=== PATIENT | male | born 1985 | race Caucasian/White ===

== ENCOUNTER 2022-11-20 14:22 | Outpatient (CLI) | payer OTHER, SELFPAY ==
--- NOTE | ~2022-11-20 | US_ITS ---
EXAMINATION: US venous doppler [facility] DATE: 11/20/2022 15:16 INDICATION: Shortness of breath. Elevated d-dimer. TECHNIQUE: Grayscale ultrasound images without and with compression and Doppler ultrasound images of the bilateral lower extremity veins were obtained. COMPARISON: None. FINDINGS: The visualized portions of right common femoral vein, profunda (deep) femoral vein, femoral vein, pop liteal vein, posterior tibial veins, peroneal veins, gastrocnemius vein and greater saphenous vein ou tflow are patent. The visualized portions of left common femoral vein, profunda femoral vein, femoral vein, popliteal v ein, posterior tibial veins, peroneal veins, gastrocnemius vein and greater saphenous vein outflow ar e patent. IMPRESSION: 1. No deep venous thrombosis in either lower limb. Reviewed, dictated and finalized at location A.
--- NOTE | ~2022-11-20 | US_ITS ---
EXAMINATION: US venous doppler [facility] DATE: 11/20/2022 15:16 INDICATION: Shortness of breath. Other specified abnormal findings of blood chemistry. Elevated d-dim er. TECHNIQUE: Grayscale images without and with compression and Doppler images of the bilateral upper ex tremity veins were obtained. COMPARISON: None. FINDINGS: The right internal jugular vein, subclavian vein, axillary vein, brachial vein, basilic vein, cephali c vein, radial vein, and ulnar vein are patent. The left internal jugular vein, subclavian vein, axillary vein, brachial vein, basilic vein, cephalic vein, radial vein, and ulnar vein are patent. IMPRESSION: 1. Patent bilateral upper extremity veins. No evidence of venous thrombosis. Reviewed, dictated and finalized at location A.
== END 2022-11-20 14:23 ==
LOC: GOSHIMG 14:23
PROVIDERS: PCP Clinical Nurse Specialist; Visit Provider Clinical Nurse Specialist
DX: R79.89 Other specified abnormal findings of blood chemistry (principal)
CPT/HCPCS: 93970

== ENCOUNTER 2022-11-24 15:52 | Outpatient (CLI) | payer OTHER, SELFPAY ==
[2022-11-27 03:39] LABS: Thyroid Peroxidase Antibodies <1 IU/mL (<9)
== END 2022-11-24 15:53 | disposition home or self-care (01) ==
LOC: ANHGOSHLAB 15:54
PROVIDERS: PCP Clinical Nurse Specialist; Visit Provider Clinical Nurse Specialist
DX: R94.6 Abnormal results of thyroid function studies (principal)
CPT/HCPCS: 36415; 84439; 84443; 86376

== ENCOUNTER 2022-11-27 15:06 | Outpatient (CLI) | payer OTHER, SELFPAY ==
--- NOTE | ~2022-11-27 | US_ITS ---
EXAMINATION: US thyroid DATE: 11/27/2022 15:17 INDICATION: Abnormal thyroid function studies TECHNIQUE: Multiple ultrasound images of the thyroid were obtained. COMPARISON: None. FINDINGS: The right thyroid lobe measures 5.1 x 1.6 x 2.2 cm. The left thyroid lobe measures 4.6 x 1.3 x 2.0 c m. The thyroid isthmus measures 6 mm in maximal thickness. No discrete nodules identified. There is h eterogeneous echogenicity with coarsened echotexture throughout the thyroid with diffuse increased va scular flow on color Doppler which can be seen with thyroiditis. IMPRESSION: 1. Diffuse mild enlargement of the thyroid with heterogeneous echogenicity and increased vascular minerva w without discrete nodules which could be seen with thyroiditis. Reviewed, dictated and finalized at location A. IMPRESSION: 1. Diffuse mild enlargement of the thyroid with heterogeneous echogenicity and increased vascular flow without discrete nodules which could be seen with thyro iditis.
== END 2022-11-27 15:07 ==
LOC: GOSHIMG 15:07
PROVIDERS: PCP Clinical Nurse Specialist; Visit Provider Clinical Nurse Specialist
DX: E04.9 Nontoxic goiter, unspecified (principal); R94.6 Abnormal results of thyroid function studies
CPT/HCPCS: 76536

== ENCOUNTER 2022-12-22 08:15 | Outpatient (CLI) | payer OTHER, SELFPAY ==
--- NOTE | 2022-12-22 08:49 | EST_ITS ---
Patient Info Name: Jose Martin Geiger Age: 37 years : 1985 Gender: Male Ht: 72 in Wt: 255 lbs BSA: 2.46 m2 HR: 72 bpm Exam Date: 12/22/2022 9:40 AM Exam Location: [facility] Pulmonary Patient Status: Outpatient Admit Date: 12/22/2022 Staff Ordering Physician: Celia Pinto Sausage Canner: Lynne Delarosa RDCS Attending Provider: STEFAN RICARDO DO Referring Physician: Millie SPARKS; Exercise Technologist: Georgie Short RDCS Exercise Physician: Stefan Ricardo DO Exam Type: CA stress echo Study Info Treadmill exercise stress echocardiogram is performed. Summary 1. 1. Negative August exercise stress test for ischemic ST changes by ECG criteria. 2. 2. Reduced functional capacity, achieving 10 METs of workload. 3. 3. Appropriate HR response to exercise. 4. 4. Appropriate HR recovery at 1 minute post exercise. 5. 5. Negative stress echocardiogram for ischemia by wall motion analysis. 6. 6. Patient informed of the above results. Stress Echo Findings Left Ventricle Appropriate increase in LV endocardial thickening with systole. Appropriate augmentation of contractility with systole. No wall motion abnormality. Left Ventricle Normal LV systolic function, no wall motion abnormality. Protocol: August Stress ECG Details Stage: REST Duration (min): 0 min : 54 sec Speed (mph): 0.0 Grade (%): 0 HR (bpm): 63 SBP (mmHg): 133 DBP (mmHg): 75 METS: --- Stage: REST Duration (min): 22 min : 0 sec Speed (mph): 0.0 Grade (%): 0 HR (bpm): 90 SBP (mmHg): 133 DBP (mmHg): 75 METS: --- Stage: STAGE 1 Duration (min): 1 min : 0 sec Speed (mph): 1.7 Grade (%): 10 HR (bpm): 111 SBP (mmHg): 133 DBP (mmHg): 75 METS: --- Stage: STAGE 1 Duration (min): 2 min : 0 sec Speed (mph): 1.7 Grade (%): 10 HR (bpm): 115 SBP (mmHg): 133 DBP (mmHg): 75 METS: --- Stage: STAGE 1 Duration (min): 3 min : 0 sec Speed (mph): 1.7 Grade (%): 10 HR (bpm): 118 SBP (mmHg): 139 DBP (mmHg): 66 METS: --- Stage: STAGE 2 Duration (min): 1 min : 0 sec Speed (mph): 2.5 Grade (%): 12 HR (bpm): 132 SBP (mmHg): 139 DBP (mmHg): 66 METS: --- Stage: STAGE 2 Duration (min): 2 min : 0 sec Speed (mph): 2.5 Grade (%): 12 HR (bpm): 137 SBP (mmHg): 128 DBP (mmHg): 71 METS: --- Stage: STAGE 2 Duration (min): 3 min : 0 sec Speed (mph): 2.5 Grade (%): 12 HR (bpm): 141 SBP (mmHg): 128 DBP (mmHg): 71 METS: --- Stage: STAGE 3 Duration (min): 1 min : 0 sec Speed (mph): 3.4 Grade (%): 14 HR (bpm): 160 SBP (mmHg): 137 DBP (mmHg): 95 METS: --- Stage: STAGE 3 Duration (min): 2 min : 0 sec Speed (mph): 3.4 Grade (%): 14 HR (bpm): 168 SBP (mmHg): 137 DBP (mmHg): 95 METS: --- Stage: STAGE 3 Duration (min): 2 min : 1 sec Speed (mph): 0.0 Grade (%): 0 HR (bpm): 168 SBP (mmHg): 137 DBP (mmHg): 95 METS: --- Stage: RECOVERY Duration (min): 0 min : 58 sec Speed (mph): 0.0
--- NOTE | 2022-12-24 09:18 | WPDPFTINT ---
PFT Procedure Performed PFT Procedure Performed Spirometry with Pre/Post Bronchodilator Plethysmography (Lung Vol) Diffusing Cap (DLCO) Flow Vol Loop PFT Interpretation This is a pulmonary function test with pre and post-bronchodilator spirometry, plethysmography and diffusing capacity. The test was performed and results interpreted in accordance with the 2019 and 2005 ATS/ERS Task Force guidelines respectively using the Global Lung Function Initiative-2012 reference equations. Patient demonstrated good effort and cooperation. Reproducibility criteria were met. The quality of the pre bronchodilator spirometry maneuver was Grade A and post bronchodilator spirometry maneuver was Grade A. Findings: Spirometry: The contour the inspiratory and expiratory flow tracing are normal. The pre bronchodilator FVC is 4.73 L, 83% predicted. The pre bronchodilator FEV1 is 3.61 L, 79% predicted. The pre bronchodilator FEV1: FVC ratio is 76%. The post bronchodilator FVC is 4.72 L, representing no change. The post bronchodilator FEV1 is 3.71 L, representing a 3% increase. The post bronchodilator FEV1: FVC ratio 79%. Plethysmography: The total lung capacity is 5.81 L, 79% predicted. The functional residual capacity is 2.56 L, 69% predicted. The residual volume is 1.07 L, 57% predicted. Diffusing capacity: The diffusing capacity unadjusted for hemoglobin and carboxyhemoglobin is 28.7, 84% predicted. The diffusing capacity adjusted for alveolar volume is 5.04, 105% predicted. Impression: The spirometry is normal without evidence of an obstructive abnormality. There is no significant improvement after inhaling a single dose of albuterol. The total lung capacity and functional residual capacity are normal with a decreased residual volume. This is an abnormal but nonspecific lung volume pattern. The diffusing capacity is normal. There are no prior studies for comparison
== END 2022-12-22 08:16 | disposition home or self-care (01) ==
PROVIDERS: PCP Clinical Nurse Specialist; Visit Provider Clinical Nurse Specialist
DX: R06.02 Shortness of breath (principal)
CPT/HCPCS: 93351; 94060; 94726; 94729

== ENCOUNTER 2022-12-29 01:53 | Day surgery (SDC) | payer OTHER, SELFPAY ==
[2022-12-17 14:41] VITALS: BMI 32.5
[2022-12-29 06:42] VITALS: BP 144/82; PULSE 62; RESP 16; TEMP 35.9; O2SAT 99; BMI 34.5
[2022-12-29] MEDS: LACTATED RINGERS 1,000 ML 150 ML IV CONT (06:51)
--- NOTE | 2022-12-29 07:50 | P.PNAN_ITS ---
Anes - Initial Pre Proc Eval Procedure: Operation Date: 12/29/22 08:00 Proposed Procedures p Esophagogastroduodenoscopy - Jerzy Fields MD Date/Time: 12/29/22 07:50 Surgeon: Jerzy Fields MD Pre Op Diagnosis: GERD, Epigastric pain Patient Data Age: 37 Gender: M Height: 1.83 m Weight: 115.6 kg Last Vital Signs Temp 96.7 F L 12/29/22 06:42 Pulse 62 12/29/22 06:42 Resp 16 12/29/22 06:42 BP 144/82 H 12/29/22 06:42 Pulse Ox 99 12/29/22 06:42 O2 Del Method Room Air 12/29/22 06:42 Allergies Allergy/AdvReac Type Severity Reaction Status Date / Time No Known Allergies Allergy Mild Verified 12/29/22 06:41 Home Medications Medication Instructions Recorded Confirmed Type esomeprazole magnesium 20 mg 20 mg PO DAILY 11/17/22 12/29/22 History capsule,delayed release Patient hx anesthesia problems: none Family hx anesthesia problems: none Results Review: All pre-operative results and documents have been reviewed as part of the pre- operative evaluation. [facility] Past Medical History Medical History (Updated 12/03/22 @ 14:52 by Manju Ku APRN) Epigastric pressure GERD (gastroesophageal reflux disease) Globus sensation Obesity Family History Family History Sibling Alcohol abuse Father Cancer Hypertension Diabetes mellitus Heart problem Social History Social History Smoking status: Never smoker Alcohol intake: never Substance use: never Living arrangements: with family Spiritual care concerns: No Anes - Eval Final PreProcedure Day of Procedure 12/29/22 07:50 Patient weight: obese Heart: regular rate and rhythm Lungs: clear to auscultation Airway: Mallampati scale class II Neurological: alert and oriented Last oral intake: >/= 8 hours ASA classification: II Emergent: no Anesthetic plan: proceed Anesthesia type and monitoring: general GIVS and standard monitoring Results Review: All pre-operative results and documents have been reviewed as part of the pre- operative evaluation. Informed Consent: The patient's anesthetic plan and its attendant risks and benefits were discussed with the patient/family/POA. Questions were solicited and answers provided to the satisfaction of the patient/family/POA.
--- NOTE | 2022-12-29 07:51 | WPDHPUPDATE1 ---
History and Physical Update Update Date/Time: 12/29/22 07:51 History and Physical has been reviewed, including an updated exam of the patient. There are NO changes in the patient's condition. Risks, benefits, and alternatives have been discussed and questions answered. Patient agrees to proceed with procedure.
[2022-12-29 08:06] VITALS: BP 92/49; PULSE 68; RESP 18; O2SAT 100
[2022-12-29 08:16] VITALS: BP 103/60; PULSE 61; RESP 20; O2SAT 96
[2022-12-29 08:26] VITALS: BP 108/55; PULSE 62; RESP 18; O2SAT 100
== END 2022-12-29 08:33 | disposition home or self-care (01) ==
PROVIDERS: PCP Internal Medicine; Visit Provider Internal Medicine Gastroenterology
PROC: 0DJ08ZZ Inspection of Upper Intestinal Tract, Via Natural or Artificial Opening Endoscopic (ICD-10-PCS; CPT 43235; principal; 2022-12-29 08:00)
DX: K21.00 Gastro-esophageal reflux disease with esophagitis, without bleeding (principal); K31.A29 Gastric intestinal metaplasia with dysplasia, unspecified; K22.70 Barrett's esophagus without dysplasia; K44.9 Diaphragmatic hernia without obstruction or gangrene; E66.9 Obesity, unspecified; Z68.34 Body mass index [BMI] 34.0-34.9, adult
CPT/HCPCS: 43239; 88305; J2704; J7120

== ENCOUNTER 2024-06-03 23:18 | Emergency (ER) | payer OTHER, SELFPAY ==
--- NOTE | ~2024-06-03 | XR_ITS ---
CHEST RADIOGRAPH, PA AND LATERAL CLINICAL HISTORY: CHEST PAIN . COMPARISON: None available TECHNIQUE: PA and lateral views of the chest. FINDINGS The cardiomediastinal silhouette is unremarkable. The lungs are clear. Visualized osseous structures and soft tissues are unremarkable. IMPRESSION: No focal infiltrate or effusion. Reviewed, dictated and finalized at location A.
[2024-06-03 23:19] VITALS: BP 139/69; PULSE 64; RESP 16; TEMP 36.1; O2SAT 99
--- NOTE | 2024-06-03 23:19 | ECG_ITS ---
Test Date: 2024-06-03 23:28:15 Measurements Intervals [place] Rate: 58 P: 7 CA: 136 QRS: 62 QRSD: 105 T: 53 QT: 392 QTc: 387 Interpretive Statements SINUS BRADYCARDIA No previous ECG available for comparison Electronically Signed On 06-04-2024 13:29:58 CDT by Shilpi Cm M.D.
--- OUTSIDE RECORDS SUMMARY | 2024-06-03 23:20 | XMS_ITS | Clinical Summary ---
Author Organization [facility] Address [address] [place] [address] Care Team Providers Care Yeast Stacker Name Role Phone Unavailable Primary Care Provider Unavailabl e Source Comments [facility],non-owned Affiliates and Associated Physician Practices is amultiple site organization consisting of ambulatory clinics and hospital sitesin [place], [place], [place] and [place]. This disclosure is being madepursuant to the Care Everywhere program and may not contain all information available regarding this patient. Last updated 17.[facility] [employer] Allergies No known active allergies Social History Tobacco Use Types Packs/Day Years Used Date Smoking Tobacco: Never Smokeless Tobacco: Never Tobacco Cessation:Counseling Given: Not Answered Alcohol Use Standard Drinks/Week Comments Not Currently 0 (1 standard drink = 0.6 oz pur e alcohol) Sex and Gender Information Value Date Recorded Sex Assigned at Not on file Gender Identity Not on file Sexual Orientation Not on file Last Filed Vital Signs Vital Sign Reading Time Taken Comments Blood Pressure 120/79 11/19/2022 2:33 AM CDT Pulse 69 11/19/2022 2:33 AM CDT Temperature 36.3 C (97.3 F) 11/18/2022 8:10 PM CDT Respiratory Rate 20 11/19/2022 2:33 AM CDT Oxygen Saturation 100% 11/19/2022 2:33 AM CDT Inhaled Oxygen Concentration - - Weight 115.7 kg (255 lb) 11/18/2022 8:10 PM CDT Height 182.9 cm (6') 11/18/2022 8:10 PM CDT Body Mass Index 34.58 11/18/2022 8:10 PM CDT Plan of Treatment Health Maintenance Due Date Last Done Comments HIV SCREENING 11/21/1999 HEPATITIS C SCREENING 11/16/2002 DTAP/TDAP/TD VACCINES (1 - Tdap) 11/21/2003 HEPATITIS B VACCINE (1 of 3 - 19+ 3-dose series) 11/21/2003 COVID-19 VACCINE (2 - 2023-2 5 season) 2023 11/14/2020 INFLUENZA VACCINE (#1) 2023 DEPRESSION SCREENING 03/15/2024 ZOSTER VACCINE (1 of 2) 2034 HIB VACCINE Aged Out No longer eligi ble based on patient's age to complete this topic HPV VACCINE Aged Out No longer eligi ble based on patient's age to complete this topic MENINGOCOCCAL (Group B) VACC INE SHARED DECISION-MAKING Aged Out No longer eligibl e based on patient's age to complete this topic MENINGOCOCCAL GROUPS A/C/Y/W VACCINE Aged Out No longer eligible b ased on patient's age to complete this topic PNEUMOCOCCAL VACCINE Aged Out No long er eligible based on patient's age to complete this topic
--- OUTSIDE RECORDS SUMMARY | 2024-06-03 23:20 | XMS_ITS | Clinical Summary ---
Author Organization [facility] al Address [address] [place] [address] Care Team Providers Care Product Management Analyst Name Role Phone Unknown, Notinfile Primary Care Provider Unavail able Allergies No known active allergies Medications albuterol HFA (PROVENTIL HFA,VENTOLIN HFA,PROAIR HFA) 90 mcg/actuation inhaler Inhale 2 puffs every 4 (four) hours as needed for wheezing 1 each 11/15/2022 Active Social History Tobacco Use Types Packs/Day Years Used Date Smoking Tobacco: Never Assessed Personal Safety Answer Date Recorded Have you ever been in or are you currently in a harmful physical or emotional relationship or is someone making you feel afraid or unsafe? Denies 11/14/2022 Sex and Gender Information Value Date Recorded Sex Assigned at Not on file Legal Sex Male 12:36 PM CDT Gender Identity Not on file Sexual Orientation Not on file Obstetrics History Last Filed Vital Signs Vital Sign Reading Time Taken Comments Blood Pressure 120/68 11/15/2022 4:42 AM CDT Pulse 61 11/15/2022 4:42 AM CDT Temperature 36.4 C (97.5 F) 11/14/2022 9:30 PM CDT Respiratory Rate 16 11/15/2022 4:42 AM CDT Oxygen Saturation 97% 11/15/2022 4:42 AM CDT Inhaled Oxygen Concentration - - Weight 116.3 kg (256 lb 6.3 oz) 11/14/2022 9:30 PM CDT Height 182.9 cm (6') 11/14/2022 9:30 PM CDT Body Mass Index 34.77 11/14/2022 9:30 PM CDT Plan of Treatment Health Maintenance Due Date Last Done Comments Depression Screening 1985 Hepatitis C Screening 1985 DTaP/Tdap/Td Vaccine (1 - Tdap) 11/21/1995 Varicella Vaccines (1 of 2 - 13+ 2-dose series) 1997 Hepatitis B Screening 2002 Regular Well Visit/Exam 18-64 2002 Covid-19 Vaccine (2 - 2023-2 5 season) 2023 11/14/2020 Influenza Vaccine (#1) 2023 HPV Vaccines Aged Out No longer eligi ble based on patient's age to complete this topic Pneumococcal vaccine <65 Aged Out No longer eligible based on patient's age to complete this topic Insurance [facility] [employer] Address: [address] [address] [facility] HMO/PPO Address: [facility] [address] [place] [address] Care Teams Product Management Analyst Relationship Specialty Start Date End Date Unknown, Notinfile PCP - General 11/14/22
--- OUTSIDE RECORDS SUMMARY | 2024-06-03 23:20 | XMS_ITS | Referral Summary ---
Author Organization [facility] al Address [address] [place] [address] Care Team Providers Care Molder Trimmer Name Role Phone Unknown, Notinfile Primary Care [...] 11/14/2022 9:30 PM CDT Plan of Treatment Not on file Insurance [facility] HMO/PPO Address: [address] [address] [facility] HMO/PPO Address: [place] [phone] Care Teams Molder Trimmer Relationship Specialty Start Date End Date Unknown, Notinfile PCP - General 11/14/22
[2024-06-03] MEDS: ASPIRIN 81 MG CHEWABLE TABLET 324 MG PO (23:46)
[2024-06-03 23:47] VITALS: BP 125/70; PULSE 70; RESP 19; TEMP 37; O2SAT 99
[2024-06-03 23:48] VITALS: O2SAT 100
[2024-06-03 23:49] VITALS: O2SAT 100
[2024-06-03 23:59] LABS: Basophils Percent Auto 0.4 % (0.2-1.2); Eosinophils Absolute Auto 0.1 K/mm3 (0-0.3); Eosinophils Percent Auto 1.8 % (0-4.4); Hemoglobin 13.3 g/dL (14.0-18.0); Immature Granulocyte Absolute 0.01 K/mm3 (0.00-0.031); Immature Granulocyte Percent A 0.2 % (0-0.5); Lymphocytes Absolute Auto 2.04 K/mm3 (0.9-3.2); Lymphocytes Percent Auto 37.7 % (18.3-44.2); Mean Corpuscular HGB Conc 32.4 g/dl (32-36); Mean Corpuscular Hemoglobin 28.1 pg (26-34); Mean Corpuscular Volume 86.7 fl (80-100); Mean Platelet Volume 10.3 fl (7.4-10.4); Monocytes Absolute Auto 0.4 K/mm3 (0.1-0.6); Monocytes Percent Auto 7.8 % (2.6-8.5); Neutrophils Absolute Auto 2.8 K/mm3 (1.3-6.7); Neutrophils Percent Auto 52.1 % (45.5-73.1); Platelet Count Result 233 k/mm3 (150-375); Red Blood Count 4.73 M/mm3 (4.6-6.20); Red Cell Distribution Width 13.2 % (11.5-14.5); White Blood Count 5.4 K/mm3 (4.5-10.0)
[2024-06-04 00:09] LABS: Alanine Aminotransferase 35 U/L (6-50); Albumin Level 4.3 g/dL (3.5-5.1); Alkaline Phosphatase 63 U/L (38-126); Anion Gap 9 mmol/L (4-12); Aspartate Amino Transferase 31 U/L (17-59); Bilirubin,Total 0.3 mg/dL (0.2-1.3); Blood Urea Nitrogen 18 mg/dL (9-20); Calcium 9.5 mg/dL (8.4-10.2); Carbon Dioxide 27 mmol/L (22-30); Chloride 104 mmol/L (98-107); Estimated CRCL calculation 101 ml/min; Estimated Glomerular Filt Rate > 60; Glucose 113 mg/dL (65-110); Lipase 85 U/L (23-300); Potassium 4.1 mmol/L (3.4-5.0); Sodium 140 mmol/L (137-145)
[2024-06-04 00:12] LABS: INR 0.9; Partial Thromboplastin Time 27.9 Seconds (22.3-36.8); Prothrombin Time 12.7 Seconds (11.1-14.7)
--- NOTE | 2024-06-04 00:15 | ED_ITS ---
HPI - General Adult General Chief complaint: Chest Pain Stated complaint: chest pain and right shoulder pain Time Seen by Provider: 06/03/24 23:54 History of Present Illness HPI narrative: Patient is a 38-year-old gentleman presents emergency department with chief complaint of right shoulder pain patient reports that earlier today started having pain in the right shoulder area reports this evening radiated in the anterior portion of his chest patient reports no trauma denies diaphoresis reports no prior history of cardiac disease does report that he has prior history of gastroesophageal reflux disease. Related Data Home Medications ?Medication ?Instructions ?Recorded ?Confirmed ?Last Taken ?Type esomeprazole magnesium 20 mg 20 mg PO DAILY 11/17/22 06/03/24 06/02/24 History capsule,delayed release Allergies Allergy/AdvReac Type Severity Reaction Status Date / Time No Known Allergies Allergy Mild Verified 06/03/24 23:54 Review of Systems 2 Review of Systems: A 10 system review of systems was completed on the patient and is negative except for what is stated in the HPI. Nursing and ancillary documentation was reviewed. [facility] Past Medical History Medical History Obesity Epigastric pressure Globus sensation GERD (gastroesophageal reflux disease) Family History Family History Sibling Alcohol abuse Father Cancer Hypertension Diabetes mellitus Heart problem Social History Social History Smoking status: Never smoker Alcohol intake: never Substance use: never Lack of Transportation: No Lack of Food: Sometimes True Current Housing: I Have Housing Concerned About Future Housing: No Difficulty Paying Gas/Electric Bills: No Difficulty Paying for Meds: No Currently Unemployed: No Education: High School Diploma/GED Difficulty w/ Childcare or Family Care: No Living arrangements: with family Spiritual care concerns: No Exam 2 Narrative: GENERAL: Well-appearing, well-nourished, and in no acute distress. HEAD: Normocephalic, atraumatic. EYES: PERRLA and EOMI. ENT: Nares clear, no rhinorrhea or epistaxis. Mucous membranes moist. NECK: Supple. CHEST: Clear to auscultation. No respiratory distress. HEART: Regular rate and rhythm. No murmur heard. Normal peripheral pulses. ABDOMEN: Soft, nontender, nondistended, normal active bowel sounds. EXTREMITIES: Normal range of motion. No edema. SKIN: Warm, dry, no rash. NEURO: No focal deficits. Alert and oriented x3. PSYCH: Normal mood and affect. Course Vital Signs Vital signs: Vital Signs Temperature 36.1 C L 06/03/24 23:19 Pulse Rate 64 06/03/24 23:19 Respiratory Rate 16 06/03/24 23:19 Blood Pressure 139/69 06/03/24 23:19 Pulse Oximetry 99 06/03/24 23:19 Oxygen Delivery Room Air 06/03/24 23:19 Temperature 37.0 C 06/03/24 23:47 Pulse Rate 65 06/04/24 01:08 Respiratory Rate 16 06/04/24 01:08 Blood Pressure 117/67 06/04/24 01:08 Pulse Oximetry 97 06/04/24 01:08 Oxygen Delivery Room Air 06/03/24 23:49 Medical Decision Making MDM Narrative Medical decision making narrative: Differential diagnosis includes ACS, noncardiac chest pain, atypical chest pain, EKG showed no acute ischemic changes Initial troponin was -3 hour repeat troponin was negative Vital Signs Vital Signs: Vital Signs Temperature 36.1 C L 06/03/24 23:19 Pulse Rate 64 06/03/24 23:19 Respiratory Rate 16 06/03/24 23:19 Blood Pressure 139/69 06/03/24 23:19 Pulse Oximetry 99 06/03/24 23:19 Oxygen Delivery Room Air 06/03/24 23:19 Temperature 37.0 C 06/03/24 23:47 Pulse Rate 65 06/04/24 01:08 Respiratory Rate 16 06/04/24 01:08 Blood Pressure 117/67 06/04/24 01:08 Pulse Oximetry 97 06/04/24 01:08 Oxygen Delivery Room Air 06/03/24 23:49 Lab Data 06/03/24 23:50 06/03/24 23:50 Labs: Lab Results 06/03/24 06/04/24 Range/Units 23:50 02:12 WBC 5.4 (4.5-10.0) K/mm3 RBC 4.73 (4.6-6.20) M/mm3 Hgb 13.3 L (14.0-18.0) g/dL Hct 41.0 L (42.0-52.0) % MCV 86.7 (80-100) fl MCH 28.1 (26-34) pg MCHC 32.4 (32-36) g/dl RDW 13.2 (11.5-14.5) % Plt Count 233 (150-375) k/mm3 MPV 10.3 (7.4-10.4) fl Immature Gran % (Auto) 0.2 (0-0.5) % Neut % (Auto) 52.1 (45.5-73.1) % Lymph % (Auto) 37.7 (18.3-44.2) % Sully % (Auto) 7.8 (2.6-8.5) % Eos % (Auto) 1.8 (0-4.4) % Baso % (Auto) 0.4 (0.2-1.2) % Lymph # (Auto) 2.04 (0.9-3.2) K/mm3 Sully # (Auto) 0.4 (0.1-0.6) K/mm3 Eos # (Auto) 0.1 (0-0.3) K/mm3 Baso # (Auto) 0.0 (0.0-0.1) K/mm3 Abs Immat Gran (auto) 0.01 (0.00-0.031) K/mm3 Absolute Neuts (auto) 2.8 (1.3-6.7) K/mm3 Absolute Nucleated RBC 0.000 (0.0-0.012) K/mm3 Nucleated RBC % 0.0 (0.0-0.2) % PT 12.7 (11.1-14.7) Seconds INR 0.9 APTT 27.9 (22.3-36.8) Seconds Sodium 140 (137-145) mmol/L Potassium 4.1 (3.4-5.0) mmol/L Chloride 104 (98-107) mmol/L Carbon Dioxide 27 (22-30) mmol/L Anion Gap 9 (4-12) mmol/L BUN 18 (9-20) mg/dL Creatinine 1.16 (0.7-1.3) mg/dL Estim Creat Clear Calc 101 ml/min Estimated GFR > 60 (59 - ) Glucose 113 H (65-110) mg/dL Calcium 9.5 (8.4-10.2) mg/dL Total Bilirubin 0.3 (0.2-1.3) mg/dL AST 31 (17-59) U/L ALT 35 (6-50) U/L Alkaline Phosphatase 63 (38-126) U/L Troponin I < 0.012 < 0.012 (0.000-0.034) ng/mL Total Protein 7.0 (6.3-8.2) g/dL Albumin 4.3 (3.5-5.1) g/dL Lipase 85 (23-300) U/L Discharge Plan Discharge Clinical Impression: Atypical chest pain Patient Disposition: Home, Self-Care Condition: Stable Instructions: Antibiotic Form, Chest Pain (ED) Patient Language: Welsh Prescriptions: No Action esomeprazole magnesium 20 mg capsule,delayed release(DR/EC) 20 mg PO DAILY Follow-up/Referrals: Jim Agarwal DO [Primary Care Provider] - Time of Disposition: 03:07 Quality HEART score for chest pain patients History: slightly suspicious ECG: normal Age: < or = to 45 years Risk factors: 1 or 2 risk factors Troponin: < or = to 1x normal limit Heart score: 1
[2024-06-04 00:21] LABS: Troponin I < 0.012 ng/mL (0.000-0.034)
--- OUTSIDE RECORDS SUMMARY | 2024-06-04 00:33 | XMS_ITS | Clinical Summary ---
Author Organization [facility] Address [address] [place] [address] Care Team Providers Care Surgical Appliances Salesperson Name Role Phone Unavailable Primary Care Provider Unavailabl e Source Comments [facility],non-owned Affiliates and Associated Physician Practices is amultiple site organization consisting of ambulatory clinics and hospital sitesin [place], [place], [place] and [place]. This disclosure is being madepursuant to the Care Everywhere program and may not contain all information available regarding this patient. Last updated 17.[facility] [employer] Allergies No known active allergies Social History [...]
--- OUTSIDE RECORDS SUMMARY | 2024-06-04 00:33 | XMS_ITS | Clinical Summary ---
Author Organization [facility] al Address [address] [place] [address] Care Team Providers Care Safe And Vault Installer Name Role Phone Unknown, Notinfile Primary Care [...] patient's age to complete this topic Insurance [facility] [employer] Address: [address] [phone] [place] [address] Care Teams Safe And Vault Installer Relationship Specialty Start Date End Date Unknown, Notinfile PCP - General 11/14/22
--- OUTSIDE RECORDS SUMMARY | 2024-06-04 00:33 | XMS_ITS | Referral Summary ---
Author Organization [facility] al Address [address] [place] [address] Care Team Providers Care Field Map Editor Name Role Phone Unknown, Notinfile Primary Care [...] Plan of Treatment Not on file Insurance Member Subscriber Plan / Payer (Ef fective 2022-Present) Name:Jose Martin Geiger Relation to Subscriber:Self Name:Jose Martin Geiger Payer ID:[id number] (NAIC) Type:[facility] HMO/PPO Address: [place] [phone] Care Teams Field Map Editor Relationship Specialty Start Date End Date Unknown, Notinfile PCP - General 11/14/22
[2024-06-04 01:08] VITALS: BP 117/67; PULSE 65; RESP 16; O2SAT 97
--- NOTE | 2024-06-04 02:05 | ECG_ITS ---
Test Date: 2024-06-04 02:09:58 Measurements Intervals [place] Rate: 51 P: 19 ID: [id number] QRS: 63 QRSD: 98 T: 56 QT: 402 QTc: 373 Interpretive Statements SINUS BRADYCARDIA WITH SINUS ARRHYTHMIA Compared to ECG 06/03/2024 23:28:15 No significant changes Electronically Signed On 06-04-2024 13:31:46 CDT by Shilpi Cm M.D.
[2024-06-04 02:51] LABS: Troponin I < 0.012 ng/mL (0.000-0.034)
[2024-06-04 03:13] VITALS: BP 123/77; PULSE 61; RESP 15; TEMP 36.7; O2SAT 99
== END 2024-06-04 03:14 | disposition home or self-care (01) ==
PROVIDERS: Emergency Provider Emergency Medicine; PCP Internal Medicine
DX: R07.89 Other chest pain (principal); K21.9 Gastro-esophageal reflux disease without esophagitis; E66.9 Obesity, unspecified; Z68.35 Body mass index [BMI] 35.0-35.9, adult; R00.1 Bradycardia, unspecified
CPT/HCPCS: 36415; 71046; 80053; 83690; 84484; 85025; 85610; 85730; 93005; 99284; A9270

== ENCOUNTER 2025-02-12 05:52 | Day surgery (SDC) | payer OTHER, SELFPAY ==
[2024-12-11 15:05] VITALS: BMI 35.0
[2025-02-02 09:41] VITALS: BMI 37.7
--- OUTSIDE RECORDS SUMMARY | 2025-02-12 05:54 | XMS_ITS | Clinical Summary ---
Author Organization [facility] al Address [address] [place] [address] Care Team Providers Care Evaporator Operator Molasses Name Role Phone Unknown, Notinfile Primary Care [...] Screening 2002 Regular Well Visit/Exam 18-64 2002 HPV Vaccines (1 - 3-dose SCD M series) 11/21/2011 Covid-19 Vaccine (2 - 2024-2 6 season) 2024 11/14/2020 Influenza Vaccine (#1) 2024 Pneumococcal vaccine <65 Aged Out No longer eligible based on patient's age to complete this topic Insurance Care Teams Evaporator Operator Molasses Relationship Specialty Start Date End Date Unknown, Notinfile PCP - General 11/14/22
[2025-02-12 06:15] VITALS: BP 130/77; PULSE 68; RESP 18; TEMP 36.5; O2SAT 100
[2025-02-12] MEDS: SIMETHICONE ORAL SUSPENSION 20 MG/0.3 ML 30 ML BOTTLE 1.8 ML PO (06:22)
[2025-02-12] MEDS: LACTATED RINGERS 1,000 ML 150 ML IV CONT (06:30)
--- NOTE | 2025-02-12 07:23 | WPDANESEPPF ---
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 Patient Data Age: 39 Gender: M Height: 1.85 m Weight: 118.9 kg Last Vital Signs Temp 97.7 F 02/12/25 06:15 Pulse 68 02/12/25 06:15 Resp 18 02/12/25 06:15 BP 130/77 02/12/25 06:15 Pulse Ox 100 02/12/25 06:15 O2 Del Method Room Air 02/12/25 06:15 Allergies Allergy/AdvReac Type Severity Reaction Status Date / Time No Known Allergies Allergy Mild Verified 02/12/25 06:12 Home Medications ?Medication ?Instructions ?Recorded ?Confirmed ?Type fluticasone propionate 50 2 spray intranasal DAILY #16 grams 12/07/24 02/12/25 Rx mcg/actuation nasal spray,suspension (Flonase Allergy Relief) omeprazole 20 mg capsule,delayed 20 mg PO DAILY 12/07/24 02/12/25 History release Patient hx anesthesia problems: none Family hx anesthesia problems: none Results Review: All pre-operative results and documents have been reviewed as part of the pre-operative evaluation. [facility] Past Medical History Medical History Obesity Epigastric pressure Globus sensation GERD (gastroesophageal reflux disease) Family History Family History Sibling Alcohol abuse Father Cancer Hypertension Diabetes mellitus Heart problem Mother Thyroiditis Social History Social History Smoking status: Never smoker Alcohol intake: current Substance use: never Substance use type: does not use Lack of Transportation: No Lack of Food: Sometimes True Current Housing: I Have Housing Concerned About Future Housing: No Difficulty Paying Gas/Electric Bills: No Difficulty Paying for Meds: No Currently Unemployed: No Education: High School Diploma/GED Difficulty w/ Childcare or Family Care: No Living arrangements: with family Spiritual care concerns: No Anes - Eval Final PreProcedure Day of Procedure 02/12/25 07:23 Heart: regular rate and rhythm Lungs: clear to auscultation Airway: Mallampati scale class II Neurological: alert and oriented Last oral intake: >/= 8 hours ASA classification: II Anesthetic plan: proceed Anesthesia type and monitoring: general Results Review: All pre-operative results and documents have been reviewed as part of the pre-operative evaluation. Informed Consent: The patient's anesthetic plan and its attendant risks and benefits were discussed with the patient/family/POA. Questions were solicited and answers provided to the satisfaction of the patient/family/POA.
--- NOTE | 2025-02-12 07:42 | PM.IMHP ---
H&P: HPI History of Present Illness Date/Time: 02/12/25 07:42 Chief Complaint: GERD Narrative: Patient with Medrano's esophagus, last EGD 2022, here for EGD follow up. Asymptomatic. Review of Systems Review of Systems: All systems reviewed & are unremarkable except as noted in HPI and below PMFSH Past Medical History Medical History Obesity Epigastric pressure Globus sensation GERD (gastroesophageal reflux disease) Family History Family History Sibling Alcohol abuse Father Cancer Hypertension Diabetes mellitus Heart problem Mother Thyroiditis Social History Social History Smoking status: Never smoker Alcohol intake: current Substance use: never Substance use type: does not use Lack of Transportation: No Lack of Food: Sometimes True Current Housing: I Have Housing Concerned About Future Housing: No Difficulty Paying Gas/Electric Bills: No Difficulty Paying for Meds: No Currently Unemployed: No Education: High School Diploma/GED Difficulty w/ Childcare or Family Care: No Living arrangements: with family Spiritual care concerns: No Meds Home Medications and Allergies Home Medications ?Medication ?Instructions ?Recorded ?Confirmed ?Type fluticasone propionate 50 2 spray intranasal DAILY #16 grams 12/07/24 02/12/25 Rx mcg/actuation nasal spray,suspension (Flonase Allergy Relief) omeprazole 20 mg capsule,delayed 20 mg PO DAILY 12/07/24 02/12/25 History release Allergies Allergy/AdvReac Type Severity Reaction Status Date / Time No Known Allergies Allergy Mild Verified 02/12/25 06:12 Vital Signs Vital Signs - 24 hr 02/12/25 06:15 Temperature 97.7 F Pulse Rate 68 Respiratory Rate 18 Blood Pressure 130/77 Pulse Oximetry 100 Oxygen Delivery Room Air Exam Const: General: cooperative and healthy appearing Resp: Effort & Inspection: normal respiratory effort and able to speak in complete sentences Auscultation: clear to auscultation bilaterally Cardio: Rate: regular rate Rhythm: regular rhythm GI: Inspection: normal to inspection GI Palp: No No hepatosplenomegaly present Auscultation: normal bowel sounds Rectal Exam: deferred Skin: General skin exam: normal color Psych: Appearance: grossly normal Mental Status: mental status grossly normal Assessment and Plan Assessment and plan (1) Medrano esophagus: Code(s): K22.70 - 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 Will proceed.
--- NOTE | 2025-02-12 07:56 | WPDANESPN ---
Anes - Prog Note Post-Op Date/Time: 02/12/25 07:56 Vital Signs: Last Vital Signs Temp 97.7 F 02/12/25 06:15 Pulse 68 02/12/25 06:15 Resp 18 02/12/25 06:15 BP 130/77 02/12/25 06:15 Pulse Ox 100 02/12/25 06:15 O2 Del Method Room Air 02/12/25 06:15 Pain Score (VAS): no Patient Feedback: Patient satisfied with anesthetic care.
[2025-02-12 07:59] VITALS: BP 105/64; PULSE 78; RESP 16; O2SAT 95
[2025-02-12 08:09] VITALS: BP 102/64; PULSE 61; RESP 16; O2SAT 95
[2025-02-12 08:19] VITALS: BP 116/75; PULSE 63; RESP 16; O2SAT 95
== END 2025-02-12 08:25 | disposition home or self-care (01) ==
PROVIDERS: PCP Family Medicine; Referring Provider Family Medicine; Visit Provider Internal Medicine Gastroenterology
PROC: 0DJ08ZZ Inspection of Upper Intestinal Tract, Via Natural or Artificial Opening Endoscopic (ICD-10-PCS; CPT 43239; principal; 2025-02-12 07:30)
DX: K22.70 Barrett's esophagus without dysplasia (principal); K21.00 Gastro-esophageal reflux disease with esophagitis, without bleeding; K44.9 Diaphragmatic hernia without obstruction or gangrene
CPT/HCPCS: 43239

== ENCOUNTER 2025-02-12 08:32 | Outpatient (CLI) | payer OTHER, SELFPAY ==
--- NOTE | 2025-02-12 | S_PTH ---
PATIENT: Jose Martin Geiger LOC: ANHLAB #:[id number] AGE/SX: 39/M ROOM: RE02/12/[address]: Guilherme Carroll MD : 1985 BED: DIS: 02/12/2025 SPEC #: [id number] RECD: 02/13/25 08:50 STATUS: [place] REQ #: [id number] NIKHIL: 02/12/25 00:[address]: Guilherme Carroll DEPT: [facility] Surgical RECD BY: Lexie Winters ENTERED: 02/13/25 08:51 SP TYPE: Surgical OTHR DR: Mello Guevara MD Tissues: A - Esophageal Biopsy Procedures: Hematoxylin and Eosin Stain Gross and Microscopic Level 4
--- OUTSIDE RECORDS SUMMARY | 2025-02-13 08:39 | XMS_ITS | Clinical Summary ---
Author Organization [facility] Address [address] [place] [address] Care Team Providers Care Internal Revenue Service Agent Name Role Phone Unavailable Primary Care Provider Unavailabl e Source Comments [facility],non-owned Affiliates and Associated Physician Practices is amultiple site organization consisting of ambulatory clinics and hospital sitesin [place], [place], [place] and [place]. This disclosure is being madepursuant to the Care Everywhere program and may not contain all information available regarding this patient. Last updated 17.[facility] [employer]ge [employer]uster Allergies No known active allergies Social History Tobacco Use Types Packs/Day Years Used Date Smoking Tobacco: Never Smokeless Tobacco: Never Tobacco Cessation:Counseling Given: Not Answered Alcohol Use Standard Drinks/Week Comments Not Currently 0 (1 standard drink = 0.6 oz pur e alcohol) Sex and Gender Information Value Date Recorded Sex Assigned at Not on file Legal Sex Male 6:57 AM CDT Gender Identity Not on file Sexual [...] of 3 - 19+ 3-dose series) 11/21/2003 HPV VACCINE (1 - 3-dose SCDM series) 11/21/2011 DEPRESSION SCREENING 03/15/2024 COVID-19 VACCINE (2 - 2024-2 6 season) 2024 11/14/2020 INFLUENZA VACCINE (#1) 2024 LIPID TESTING 11/19/2027 11/18/2022 ZOSTER VACCINE (1 of 2) 2034 HIB [...] on patient's age to complete this topic Procedures Procedure Name Priority Date/Time Associated Diagnosis Comments LIPID PROFILE Routine 11/18/2022 7:21 AM CDT Screening for lipoid disorders from Last 3 Months or Most Recently Relevant to Health Maintenance Results * (ABNORMAL) LIPID PROFILE (11/18/2022 7:21 AM CDT) Cholesterol Total 191 <200 mg/dL 11/18/2022 8:05 AM [facility] HDL 39(L) >40 mg/dL 11/18/2022 8:05 AM [facility] Comment: ATP III Classification of HDL Cholesterol: <40 mg/dL: Considered a major risk factor. >60 mg/dL: Considered a negative risk factor. LDL Calculated 136(H) <100 mg/dL 11/18/2022 8:05 AM [facility] Comment: ATP III Classification of LDL Cholesterol: <100 mg/dL: Optimal 100 - 129 mg/dL: Near Optimal/Above Optimal 130 - 159 mg/dL: Borderline High 160 - 189 mg/dL: High >190 mg/dL: Very High Triglycerides 80 <150 mg/dL 11/18/2022 8:05 AM CDT [facility] Comment: ATP III Classification of Triglycerides: <150 mg/dL: Normal 150 - 199 mg/dL: Borderline High 200 - 400 mg/dL: High >500 mg/dL: Very High Blood BLOOD SPECIMEN / Unknown Lab Venipuncture / Unknown 11/18/2022 7:21 AM CDT 11/18/2022 7:32 AM CDT Celia Pinto BODY CLEANER-MORTGAGE PROCESSING MANAGER LAB - CHEMISTRY ORDERABLE S Final Result [facility] [address] [place] [address], [facility] [phone] from Last 3 Months or Most Recently Relevant to Health Maintenance Insurance [facility]
--- OUTSIDE RECORDS SUMMARY | 2025-02-13 08:40 | XMS_ITS | Clinical Summary ---
Author Organization [facility] al Address [address] [place] [address] Care Team Providers Care Pass Worker Name Role Phone Unknown, Notinfile Primary Care [...] to complete this topic Insurance Care Teams Pass Worker Relationship Specialty Start Date End Date Unknown, Notinfile PCP - General 11/14/22
== END 2025-02-12 08:33 | disposition home or self-care (01) ==
LOC: ANHLAB 02-13 08:33
PROVIDERS: PCP Family Medicine; Visit Provider Internal Medicine Gastroenterology
DX: K21.00 Gastro-esophageal reflux disease with esophagitis, without bleeding (principal); K31.A19 Gastric intestinal metaplasia without dysplasia, unspecified site; K22.70 Barrett's esophagus without dysplasia
CPT/HCPCS: 88305